=== PATIENT | male | born 1970 | race Caucasian/White ===

== ENCOUNTER → 2021-06-24 | Outpatient (REF) | payer OTHER ==
[2021-06-24 17:50] LABS: C REACTIVE PROTEIN QUANTITATIV < 0.30 MG/DL (0.00-0.30); IRON (FE) 80 UG/DL (65-175); RHEUMATOID FACTOR QUANT < 10.0 IU/ML (<15.0)
[2021-06-24 18:00] LABS: TOTAL 25(OH) VITAMIN D 29.8 NG/ML (30.0-100.0); VITAMIN B12 LEVEL 811 PG/ML (247-911)
== END ==
LOC: M SFHCRHEU 15:58
PROVIDERS: ATTEND Internal Medicine
DX: M25.40 Effusion, unspecified joint (principal); L40.9 Psoriasis, unspecified; R53.82 Chronic fatigue, unspecified